=== PATIENT | male | born 1990 | race Caucasian/White ===

== ENCOUNTER 2018-08-04 20:13 | Outpatient (REF) | payer MEDICAID, BC, SELFPAY ==
[2018-08-16 09:41] LABS: Misc Referral (MAYO) See Comments
== END 2018-08-04 20:33 ==
LOC: LBN 20:13
PROVIDERS: PCP Internal Medicine; Visit Provider Internal Medicine
DX: K13.0 Diseases of lips (principal)
CPT/HCPCS: 87077; 87252; 87070; 87186

== ENCOUNTER 2018-11-24 13:40 | Emergency (ER) | payer OTHER, SELFPAY ==
[2018-11-24 13:43] VITALS: BP 186/101; PULSE 76; RESP 20; TEMP 36.8; O2SAT 99
--- NOTE | 2018-11-24 13:45 | DI.RAD_ITS ---
SYMPTOM/DIAGNOSIS: SCAPHOID TENDERNESS AFTER FALL LEFT HAND: Three views were obtained. No fracture is seen.
--- NOTE | 2018-11-24 13:46 | W.ED.GENAD ---
Discharge Plan Disposition Patient Disposition: HOME Condition: Improving Discharge Details Chief Complaint: Orthopedic Clinical Impression: Contusion of left hand Primary Care Provider: Karen Burr ED Provider: Madan Kaur Home Meds and New Rx's Prescriptions: Continued albuterol sulfate [ProAir HFA] 8.5 GM HFA aerosol inhaler 1 - 2 puff Inhalation Q4H PRN Qty: 1 RF: 4 Discharge Instructions Instructions: Contusion in Adults (ED) Additional Instructions: Please follow-up with Dr. Karen Bowers for recheck in 7 to 10 days time if you have persistent pain. Wear wrist splint for 7 to 10 days time as we discussed. Elevate and apply ice to reduce discomfort. May use Tylenol and/or ibuprofen as needed for pain. Return for any acute concerns in the interim Medical Decision Making 28-year-old male presents from home complaining of left hand pain at the base of the thumb after fall on outstretched extremity. There is no overlying laceration. There is no other injury. Patient has pain with resisted supination and pain with palpation of the anatomical snuffbox. Concern for the bony contusion versus underlying scaphoid fracture. Patient referred for x-ray which does not reveal underlying bony injury. He is at risk for occult scaphoid fracture and placed in a thumb spica abduction splint. We will ask that he follow-up with primary care for recheck in 7 to 10 days time. If ongoing pain at that time consider repeat x-ray or referral to orthopedics. If pain is improved he may remove and discontinue use of the splint. HPI General Mode of arrival: ambulatory. Date/Time Provider Initiated Documentation: 11/24/18 13:41. Limitations to Documentation: no limitations. Information obtained by: patient. History of Present Illness 28 year old M presents to the emergency department with the chief complaint of Left hand pain after fall, described as moderate, Quality is described as dull and constant, and is localized to the left and upper extremity. Patient reports no radiation. Patient started experiencing this hour(s) and it has been constant. No relieving factors improve symptom(s), No exacerbating factors reported . Patient notes no other symptoms.. Patient did receive the following treatments prior to arrival, none Related Data Home Medications Medication Instructions Recorded Confirmed albuterol sulfate [ProAir HFA] 1 - 2 puff INHALATION Q4H PRN #1 10/02/17 11/24/18 inhaler Previous Rx's Medication Instructions Recorded albuterol sulfate [ProAir HFA] 1 - 2 puff INHALATION Q4H PRN #1 10/02/17 inhaler Allergies Allergy/AdvReac Type Severity Reaction Status Date / Time No Known Allergies Allergy Unverified 11/24/18 13:46 Review of Systems Review of Systems No numbness or tingling. No other injury. 4 systems reviewed and otherwise negative [facility] Family History Mother No problems noted. Father No problems noted. Sister No problems noted. Social History Smoking/Tobacco Use Status: Current-Occasional Drug use: Never Do you feel safe at home: Yes Do you feel safe in your relationship?: Yes Exam Narrative Exam Narrative: GEN: awake, alert, oriented 3. Pleasant, well groomed, interactive. HEAD: Normocephalic, atraumatic ENT: Mucous membranes moist, oropharynx unremarkable, External ear exam unremarkable EYES: PERRL, EOMI EXT: Full ROM, no edema, no rash. The left upper extremity exam notable for left snuffbox tenderness as well as pain with resisted supination. 2+ radial pulse. Sensation intact throughout. No motor deficits Neuro: Grossly normal neurologic exam, conversant, interactive. Psych: Speech fluent, thoughts congruent, affect normal
[2018-11-24] MEDS: Acetaminophen 325 MG TAB (14:00)
== END 2018-11-24 14:25 | disposition home or self-care (01) ==
PROVIDERS: Emergency Provider Emergency Medicine; PCP Internal Medicine
DX: S60.222A Contusion of left hand, initial encounter (principal); W01.0XXA Fall on same level from slipping, tripping and stumbling without subsequent striking against object, initial encounter
CPT/HCPCS: 99283; 73130; 99282; L3807

== ENCOUNTER 2020-08-21 14:07 | Emergency (ER) | payer OTHER, SELFPAY ==
[2020-08-21 14:13] VITALS: BP 173/105; PULSE 93; RESP 20; TEMP 36.8; O2SAT 98
--- NOTE | 2020-08-21 14:45 | W.ED.GENAD ---
Discharge Plan Disposition Patient Disposition: HOME Condition: Stable Discharge Details Clinical Impression: Abrasion of skin, Traumatic effect of water pressure Primary Care Provider: Oumou Hall ED Provider: Crystal Ortiz Home Meds and New Rx's Prescriptions: Continued albuterol sulfate [ProAir HFA] 90 mcg/actuation HFA aerosol inhaler 1 - 2 puff Inhalation Q4H PRN Qty: 1 RF: 4 Discharge Instructions Instructions: Abrasion (ED) Additional Instructions: Keep wound clean and dry. Cover wound with bandage if risk of contamination. Otherwise you can keep the wound open to air if resting at home to allow edges to dry and heal. Apply topical antibiotic ointment to the wounds if you develop any worsening redness, swelling or pain. Follow-up with your primary care doctor in 1 week. Return to the emergency department with any worsening or new concerning symptoms. Discharge Data Discharge Physician: Crystal Ortiz Medical Decision Making 30-year-old male presents for evaluation after accidentally sprayed with cold water from a high pressure machine to his right forearm and abdomen just prior to arrival. He has multiple pinpoint crusts to his right volar forearm consistent with high-pressure injection but with no active bleeding, cellulitis or trauma. No evidence of compartment syndrome. Moving all extremities normally. Anterior chest and abdomen appear normal to inspection. He is unsure of his last tetanus status. Tetanus given here. Patient advised on the importance of supportive care including keeping area clean and dry, apply topical antibiotic ointment if worsening pain or redness. Advised to follow up with the primary care doctor for re-evaluation. Usual and customary return precautions given prior to discharge. Medical Records Medical records reviewed: Yes I reviewed the patient's medical records. HPI General Mode of arrival: ambulatory. Date/Time Provider Initiated Documentation: 08/21/20 14:45. Limitations to Documentation: no limitations. Information obtained by: patient. HPI Narrative: Patient is a 30-year-old male who presents for evaluation after sustained high pressure water to his right arm and anterior chest while at work prior to arrival. Patient states he was sent here by his employer for documentation purposes and evaluation. Patient states he was accidentally sprayed with 30,000 PSI of cold water to his abdomen and right arm. He denies any fever, nausea, vomiting, abdominal or arm pain. He states his right forearm caused small little areas of bleeding immediately which is since dried. He is unsure of his tetanus status. Related Data Home Medications Medication Instructions Recorded Confirmed albuterol sulfate 90 mcg/actuation 1 - 2 puff INHALATION Q4H PRN #1 01/12/19 08/21/20 aerosol inhaler inhaler Previous Rx's Medication Instructions Recorded albuterol sulfate 90 mcg/actuation 1 - 2 puff INHALATION Q4H PRN #1 01/12/19 aerosol inhaler inhaler Allergies Allergy/AdvReac Type Severity Reaction Status Date / Time No Known Allergies Allergy Unverified 08/21/20 14:16 General Stated Complaint: RashLesion MEMO: 4 Review of Systems All systems reviewed & are unremarkable except as noted in HPI and below Constitutional Constitutional: Reports as per HPI, Denies chills and Denies fever(s) Eyes Eyes: Denies blurry vision ENT Ears, Nose, Mouth, and Throat: Denies dizziness, Denies sore throat and Denies throat swelling Cardiovascular Cardiovascular: Denies chest pain and Denies dyspnea Respiratory Respiratory: Denies cough and Denies dyspnea Gastrointestinal Gastrointestinal: Denies abdominal pain, Denies diarrhea and Denies vomiting Genitourinary Genitourinary: Denies hematuria and Denies dysuria Musculoskeletal Musculoskeletal: Denies back pain and Denies numbness Integumentary/Breasts Skin/Breast: Reports lesions and Denies rash Neurologic Neurologic: Denies dizziness, Denies localized weakness and Denies numbness Allergic/Immunologic Allergic/Immunologic: Denies throat swelling [facility] Medical History (Updated 08/21/20 @ 14:54 by Crystal Ortiz DO) No significant past medical history Surgical History (Updated 08/21/20 @ 14:45 by Crystal Ortiz DO) No significant past surgical history Family History (Updated 01/14/19 @ 11:20 by Michael Gomes) Mother No problems noted. Father Alcohol abuse Depression Sister No problems noted. Maternal Grandfather Cancer Paternal Grandfather , 20s Alcohol abuse Maternal Grandmother No problems noted. Paternal Grandmother No problems noted. Social History (Updated 01/14/19 @ 11:19 by Michael Gomes) Smoking/Tobacco Use Status: Former Tobacco Use Tobacco: How many years used: 8 Second Hand Exposure: Yes Smoking risk assessment performed?: Yes Alcohol Intake: current Alcohol Intake frequency: 0-2 drinks per day Alcohol type: beer Drug use: Occasionally Substance use type: marijuana Household members: family Housing: house Communication Needs: None Do you need help understanding health information?: Never Pets and animals: Yes Pets and animals: cat(s) and dog(s) Sexually active: Yes Do you think of yourself as: straight/heterosexual Current gender identity: male What is your relationship status?: never How often do you talk on the phone with friends or family?: once per week How often do you get together with friends or relatives?: once per week How often do you attend episcopalian or shinto services?: 1-3 times per year Do you belong to any clubs or organized social groups?: no Panel score (0-1 are the most socially isolated patients): 0 What type of physical activity do you participate in: decline to answer Duration: < 15 minutes/day Frequency: 1-2 times per week Rossi/Alevism: None Agree to transfusion: No Seatbelt use: always Helmet use: No 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 Do you feel safe at home: Yes Do you feel safe in your relationship?: Yes Exam Const General: cooperative, healthy appearing and no acute distress HENMT Head: normal to inspection Mouth: oral mucosae normal Eyes General: appearance normal, both eyes and all related structures Neck Neck: normal visual inspection Chest Chest: normal inspection of the chest, normal palpation of entire chest wall, no crepitus and no tenderness Resp Effort & Inspection: normal respiratory effort and able to speak in complete sentences Cardio Rate: regular rate Skin General skin exam: no rashes or lesions noted Neuro General: patient alert, patient awake and patient oriented x3 Motor: muscle tone normal throughout Extrem Elbow/forearm/wrist images: 1. Multiple pinpoint crusts consistent with tiny abrasions from high pressure hose. No active bleeding, induration, fluctuance, edema, ecchymosis. Psych Appearance: grossly normal Affect: normal affect Course Vital Signs Vital signs: Vital Signs Temperature 98.2 F 08/21/20 14:13 Pulse 93 H 08/21/20 14:13 Respiratory Rate 20 08/21/20 14:13 Blood Pressure 173/105 H 08/21/20 14:13 Pulse Oximetry 98 08/21/20 14:13 Temperature 98.2 F 08/21/20 14:13 Temperature Source Skin 08/21/20 14:13 Pulse 93 H 08/21/20 14:13 Respiratory Rate 20 08/21/20 14:13 Respiratory Effort Non-Labored 08/21/20 14:16 Blood Pressure 173/105 H 08/21/20 14:13 Blood Pressure Position Sitting 08/21/20 14:13 Pulse Oximetry 98 08/21/20 14:13 Oxygen Delivery Method Room Air 08/21/20 14:13 Oxygen Flow Rate 0 08/21/20 14:13 Pain Level 3 08/21/20 14:13
[2020-08-21 15:34] VITALS: BP 178/97; PULSE 81; RESP 18; TEMP 37.5; O2SAT 98
== END 2020-08-21 15:36 | disposition home or self-care (01) ==
PROVIDERS: Emergency Provider Physician Assistant; PCP Nurse Practitioner
DX: S50.811A Abrasion of right forearm, initial encounter (principal); T70.4XXA Effects of high-pressure fluids, initial encounter; Y99.0 Civilian activity done for income or pay
CPT/HCPCS: 90471; 99284; 99283

== ENCOUNTER 2023-08-10 18:14 | Outpatient (REF) | payer OTHER, SELFPAY ==
[2023-08-10 22:03] LABS: Calculated LDL 134 mg/dL (<100); Cholesterol 234 mg/dL (<200); HDL Cholesterol 74 mg/dL (40-60); Triglyceride 132 mg/dL (<150)
[2023-08-11 18:46] LABS: Hepatitis C Ab w Rflx HCV PCR Negative (Negative)
[2023-08-11 18:49] LABS: HIV-1/2 Ag & Ab Screen Negative (Negative)
== END 2023-08-10 18:15 | disposition home or self-care (01) ==
LOC: LBN 18:14
PROVIDERS: PCP Nurse Practitioner Family; Visit Provider Nurse Practitioner Family
DX: Z13.220 Encounter for screening for lipoid disorders (principal); Z11.4 Encounter for screening for human immunodeficiency virus [HIV]; Z11.59 Encounter for screening for other viral diseases
CPT/HCPCS: 80061; 86803; 87389

== ENCOUNTER 2025-06-05 04:01 | Outpatient (CLI) | payer OTHER, SELFPAY ==
[2025-06-05 16:40] LABS: Anion Gap 8.6 mmol/L (3-11); BUN 16 mg/dL (9-23); CO2 27.4 mmol/L (20.0-31.0); Calcium 9.9 mg/dL (8.3-10.6); Chloride 105 mmol/L (98-107); Glucose 84 mg/dL (74-106); Potassium 4.3 mmol/L (3.5-5.1); Sodium 141 mmol/L (136-145)
== END 2025-06-05 04:02 | disposition home or self-care (01) ==
LOC: LOS 04:02
PROVIDERS: PCP Nurse Practitioner Family; Visit Provider Nurse Practitioner Family
DX: I10 Essential (primary) hypertension (principal)
CPT/HCPCS: 36415; 80048